=== PATIENT | female | born 1980 | race African-American/Black ===

== ENCOUNTER 2017-01-11 21:28 | Emergency (ER) | payer OTHER ==
[2017-01-11 21:36] VITALS: BP 142/92; PULSE 106; TEMP 98; BMI 34.7
--- NOTE | 2017-01-11 21:41 | PDOC ---
Rapid Medical Evaluation Chief Complaint: Injury Time Seen by Provider: 01/11/17 21:40 Medical Evaluation: Allergies Allergy/AdvReac Type Severity Reaction Status Date / Time No Known Allergies Allergy Verified 06/12/15 11:15 Vital Signs Temp Pulse Resp BP Pulse Ox 98 F 106 H 19 142/92 97 01/11/17 21:33 01/11/17 21:33 01/11/17 21:33 01/11/17 21:33 01/11/17 21:33 01/11/17 21:40 I have performed a brief in-person evaluation of this patient. The patient presents with a chief complaint of: rt shoulder pain, hx of dislocation Pertinent physical exam findings: no ac seperation, tenderness to ac joint I have ordered the following: rt shoulder xray The patient will proceed to the ED for further evaluation.
[2017-01-11] MEDS ORDERED: KETOROLAC TROMETHAMINE 60 MG/2 ML VIAL IM ONE (22:27)
[2017-01-11] MEDS ORDERED: KETOROLAC TROMETHAMINE 60 MG/2 ML VIAL ONE (22:30)
--- NOTE | 2017-01-11 22:38 | PDOC ---
History of Present Illness - General Chief Complaint: Injury Stated Complaint: SHOULDER INJURY Time Seen by Provider: 01/11/17 21:40 History Source: Patient Exam Limitations: No Limitations (pt with pain ) - History of Present Illness Initial Comments: 01/11/17 22:31 pt with pain to the right shoulder woke up yesterday with the pain. Pt did not take any pain meds . Pt has history of shoulder "popping out", but has never had to have it reduced in hospital setting. Pt denies direct trauma. Severity: mild Past History - Past Medical History Allergies/Adverse Reactions: Allergies Allergy/AdvReac Type Severity Reaction Status Date / Time No Known Allergies Allergy Verified 06/12/15 11:15 Home Medications: Ambulatory Orders Naproxen [Naprosyn -] 500 mg PO BID PRN #14 tablet 01/11/17 Oxycodone HCl/Acetaminophen [Percocet 5-325 mg Tablet] 1 tab PO Q6H PRN #8 tablet MDD 4 tabs 01/11/17 Anemia: No Asthma: No Cancer: No Cardiac Disorders: No CVA: No COPD: No CHF: No DVT: No Dementia: No Diabetes: No GI Disorders: No Disorders: No HTN: No Hypercholesterolemia: No Liver Disease: No Seizures: No Thyroid Disease: No - Suicide/Smoking/Psychosocial Hx Smoking Status: Yes Smoking History: Current every day smoker Have you smoked in the past 12 months: No Number of Cigarettes Smoked Daily: 3 If you are a former smoker, when did you quit?: 2014 Information on smoking cessation initiated: No Hx Alcohol Use: No Drug/Substance Use Hx: No Substance Use Type: None Hx Substance Use Treatment: No Review of Systems - Review of Systems Able to Perform ROS?: Yes Is the patient limited Icelandic proficient: No Constitutional: No: Symptoms Reported HEENTM: No: Symptoms Reported Respiratory: No: Symptoms reported Cardiac (ROS): No: Symptoms Reported ABD/GI: No: Symptoms Reported : No: Symptoms Reported Musculoskeletal: Yes: Symptoms Reported *Physical Exam - Vital Signs Last Vital Signs Temp Pulse Resp BP Pulse Ox 98 F 106 H 19 142/92 97 01/11/17 21:33 01/11/17 21:33 01/11/17 21:33 01/11/17 21:33 01/11/17 21:33 - Physical Exam General Appearance: Yes: Nourished, Appropriately Dressed HEENT: positive: EOMI, KELSEY Neck: positive: Supple. negative: Tender Respiratory/Chest: positive: Lungs Clear, Normal Breath Sounds Cardiovascular: positive: Regular Rhythm, Regular Rate Extremity: positive: Normal Capillary Refill, Normal Inspection, Tender ( anterior shoulder ), Other (decreased ROM due to pain ) Integumentary: positive: Normal Color, Dry, Warm Neurologic: positive: Fully Oriented, Alert, Normal Mood/Affect, Normal Response , Motor Strength 5/5 Medical Decision Making - Medical Decision Making 01/11/17 22:33 cc: right shoulder pain for 36hrs woke up yesterday with the pain pt denies numbness or tingling limited ROM due to pain xray done shows neg dislocation, mild AC seperation *DC/Admit/Observation/Transfer Diagnosis at time of Disposition: Shoulder separation Qualifiers: Encounter type: initial encounter Laterality: right Qualified Code(s): S43.004A - Unspecified dislocation of right shoulder joint, initial encounter - Discharge Dispostion Disposition: HOME Condition at time of disposition: Good - Prescriptions Prescriptions: Naproxen [Naprosyn -] 500 mg PO BID PRN #14 tablet PRN Reason: Pain Level 6-10 Oxycodone HCl/Acetaminophen [Percocet 5-325 mg Tablet] 1 tab PO Q6H PRN #8 tablet MDD 4 tabs PRN Reason: Severe Pain - Referrals Referrals: Tomi Wilson MD [Primary Care Provider] - Oneil Jack MD [Staff Physician] - - Patient Instructions Additional Instructions: follow with or THIS WEEK call them in the morning tell them you were in the ER apply ice every 2hrs for 20 minutes for the next day while awake take the pain meds as prescribed naprosyn for moderate pain percocet for severe pain use the sling at all times while awake remove to sleep and bathe - Post Discharge Activity
== END 2017-01-11 22:51 | disposition home or self-care (01) ==
LOC: JERFT 21:28 → JER 21:28 → JERFT 22:51
PROC: 3E0233Z Introduction of Anti-inflammatory into Muscle, Percutaneous Approach (ICD-10-PCS; principal; 2017-01-11)
DX: M24.411 Recurrent dislocation, right shoulder (principal)
CPT/HCPCS: 73030-TC-RT; 96372; 99281-25

== ENCOUNTER 2018-05-21 11:04 | Inpatient (IN) | payer SELFPAY ==
[2018-05-21] MEDS ORDERED: ASPIRIN 81 MG CHEWABLE TABLETS PO ONE (12:20)
--- NOTE | 2018-05-21 12:25 | PDOC ---
History of Present Illness - General History Source: Patient Exam Limitations: No Limitations <Peter Sharif - Last Filed: 05/21/18 14:08> - History of Present Illness Initial Comments: 05/21/18 12:33 The patient is a 38YOF with a PMH of a-fib, thyroid disorder, stroke, and smoking history presents to the ER for chest pain for the past 2 days. Patient states the chest pain is left sided, constant, and associated with left shoulder pain. She denies having any cardiac work up in the past. She does have positive cardiac family history. The patient denies shortness of breath, headache and dizziness. Denies fever, chills, nausea, vomit, diarrhea and constipation. Denies dysuria, frequency, urgency and hematuria. Allergies: NKA Past surgical history: None reported. Social history: Smoking history. No reported alcohol or drug use. PCP: Dr. Tomi Wilson <[employer] - Last Filed: 05/21/18 14:28> - General Chief Complaint: Chest Pain Stated Complaint: CHEST PAIN Time Seen by Provider: 05/21/18 11:56 Past History - Past Medical History Anemia: No Asthma: No Cancer: No Cardiac Disorders: Yes (a fib refuses medication) CVA: No COPD: No CHF: No DVT: No Dementia: No Diabetes: No GI Disorders: No Disorders: No HTN: No Hypercholesterolemia: No Liver Disease: No Seizures: Yes (refuses medication) Thyroid Disease: No - Suicide/Smoking/Psychosocial Hx Smoking Status: Yes Smoking History: Former smoker Have you smoked in the past 12 months: Yes Number of Cigarettes Smoked Daily: 2 If you are a former smoker, when did you quit?: 01/2018 Information on smoking cessation initiated: No Hx Alcohol Use: No Drug/Substance Use Hx: No Substance Use Type: None Hx Substance Use Treatment: No <Peter Sharif - Last Filed: 05/21/18 14:08> <[employer]chant - Last Filed: 05/21/18 14:28> - Past Medical History Allergies/Adverse Reactions: Allergies Allergy/AdvReac Type Severity Reaction Status Date / Time No Known Allergies Allergy Verified 05/21/18 11:09 Home Medications: Ambulatory Orders NK [No Known Home Medication] 05/21/18 Review of Systems - Review of Systems Able to Perform ROS?: Yes Comments:: 05/21/18 12:29 ADULT ROS GENERAL/CONSTITUTIONAL: No fever or chills. No weakness. HEAD, EYES, EARS, NOSE AND THROAT: No change in vision. No ear pain or discharge. No sore throat. CARDIOVASCULAR: No shortness of breath. (+) chest pain. RESPIRATORY: No cough, wheezing, or hemoptysis. GASTROINTESTINAL: No nausea, vomiting, diarrhea or constipation. GENITOURINARY: No dysuria, frequency, or change in urination. MUSCULOSKELETAL: No joint or muscle swelling or pain. No neck or back pain. (+) Left shoulder pain. SKIN: No rash NEUROLOGIC: No headache, vertigo, loss of consciousness, or change in strength/ sensation. ENDOCRINE: No increased thirst. No abnormal weight change. HEMATOLOGIC/LYMPHATIC: No anemia, easy bleeding, or history of blood clots. ALLERGIC/IMMUNOLOGIC: No hives or skin allergy. <[employer] - Last Filed: 05/21/18 14:28> *Physical Exam - Vital Signs Last Vital Signs Temp Pulse Resp BP Pulse Ox 97.8 F 116 H 20 169/90 99 05/21/18 11:06 05/21/18 11:06 05/21/18 11:06 05/21/18 11:06 05/21/18 11:06 <Peter Sharif - Last Filed: 05/21/18 14:08> - Vital Signs Last Vital Signs Temp Pulse Resp BP Pulse Ox 97.8 F 116 H 20 169/90 99 05/21/18 11:06 05/21/18 11:06 05/21/18 11:06 05/21/18 11:06 05/21/18 11:06 - Physical Exam Comments: 05/21/18 12:28 ADULT EXAM GENERAL: Awake, alert, and fully oriented, in no acute distress EYES: PERRLA, EOMI, sclera anicteric, conjunctiva clear ENT: Auricles normal inspection, hearing grossly normal, nares patent. NECK: Normal ROM, supple, no lymphadenopathy, JVD, or masses LUNGS: Breath sounds equal, clear to auscultation bilaterally. No wheezes, and no crackles HEART: Regular rate and rhythm, normal S1 and S2, no murmurs, rubs or gallops ABDOMEN: Soft, nontender. No guarding, no rebound. EXTREMITIES: Normal range of motion, no edema. No clubbing or cyanosis. No cords, erythema (+) Reproducible tenderness to palpation on left shoulder. NEUROLOGICAL: Cranial nerves II through XII grossly intact. Normal speech SKIN: Warm, Dry, normal turgor, no rashes or lesions noted. <[employer]chant - Last Filed: 05/21/18 14:28> Moderate Sedation - Procedure Monitoring Vital Signs: Procedure Monitoring Vital Signs Temperature 97.8 F 05/21/18 11:06 Pulse Rate 116 H 05/21/18 11:06 Respiratory Rate 20 05/21/18 11:06 Blood Pressure 169/90 05/21/18 11:06 O2 Sat by Pulse Oximetry (%) 99 05/21/18 11:06 <Peter Sharif - Last Filed: 05/21/18 14:08> - Procedure Monitoring Vital Signs: Procedure Monitoring Vital Signs Temperature 97.8 F 05/21/18 11:06 Pulse Rate 116 H 05/21/18 11:06 Respiratory Rate 20 05/21/18 11:06 Blood Pressure 169/90 05/21/18 11:06 O2 Sat by Pulse Oximetry (%) 99 05/21/18 11:06 <[employer]chant - Last Filed: 05/21/18 14:28> Heart Score/ECG Review #1 ECG reviewed & interpreted by me at: 11:00 05/21/18 12:26 atrial fibrillation 107, no std/herve, Q wave V3, QTC 467 msec <Peter Sharif - Last Filed: 05/21/18 14:08> ED Treatment Course - LABORATORY CBC & Chemistry Diagram: 05/21/18 12:50 05/21/18 12:50 <Peter Sharif - Last Filed: 05/21/18 14:08> - LABORATORY CBC & Chemistry Diagram: 05/21/18 12:50 05/21/18 12:50 <[employer] - Last Filed: 05/21/18 14:28> Medical Decision Making - Medical Decision Making 05/21/18 12:21 A portion of this note was documented by scribe services under my direction. I have reviewed the details of the note, within reason, and agree with the documentation with the following case summary and management plan written by me. Patient treated in the ED. Nursing notes are reviewed and incorporated into the medical decision-making. Vital signs reviewed. Peripheral IV access obtained by the nurse, laboratory studies are drawn and sent, reviewed and interpreted by myself. Vital Signs Temp Pulse Resp BP Pulse Ox 97.8 F 116 H 20 169/90 99 05/21/18 11:06 05/21/18 11:06 05/21/18 11:06 05/21/18 11:06 05/21/18 11:06 38-year-old female patient with past medical history of atrial fibrillation, thyroid disorder, stroke, smoking history presents with left upper chest pain for 2 days. Patient is noticed constant left upper shoulder pain with question shortness of breath. Unclear if exertional. No nausea, vomiting, diaphoresis. Patient reports that the symptoms are reproducible with palpation. Does not think that she lifted anything heavy. Does have a strong family history where her twin sister had from myocardial infarction. Never had a prior cardiac workup. Patient reports that she was hesitant to follow-up with her doctor or go to [facility] because her [id number] had recently and the patient is hesitant about taking her medications. Patient is aware of the atrial for ablation history but does not take any medications. Though the patient's chest pain history of physical is atypical, the patient has significant history. The patient's symptoms may have potentially been the cause of atrial fibrillation and rapid ventricular response. However, acute coronary syndrome should be considered. Patient will need to be considered for anticoagulations particularly with history of stroke. Ultimately, the patient should be admitted to the hospital for further cardiac evaluation. We'll give aspirin and admit. CHADS2-VASC: 3 05/21/18 14:12 CBC, BMP 05/21/18 12:50 05/21/18 12:50 CMP Sodium 141 mmol/L (136-145) 05/21/18 12:50 Potassium 3.8 mmol/L (3.5-5.1) 05/21/18 12:50 Chloride 111 mmol/L (98-107) H 05/21/18 12:50 Carbon Dioxide 26 mmol/L (21-32) 05/21/18 12:50 Anion Gap 4 MMOL/L (8-16) L 05/21/18 12:50 BUN 14 mg/dL (7-18) 05/21/18 12:50 Creatinine 0.4 mg/dL (0.55-1.3) L 05/21/18 12:50 Creat Clearance w eGFR 176.78 (>60) 05/21/18 12:50 Random Glucose 94 mg/dL (74-106) 05/21/18 12:50 Calcium 8.3 mg/dL (8.5-10.1) L 05/21/18 12:50 Magnesium 1.6 mg/dL (1.8-2.4) L 05/21/18 12:50 Total Bilirubin 0.3 mg/dL (0.2-1) 05/21/18 12:50 AST 24 U/L (15-37) 05/21/18 12:50 ALT 35 U/L (13-61) 05/21/18 12:50 Alkaline Phosphatase 192 U/L (45-117) H 05/21/18 12:50 Creatine Kinase 52 U/L (26-192) 05/21/18 12:50 Troponin I < 0.02 ng/ml (0.00-0.05) 05/21/18 12:50 Total Protein 7.4 g/dl (6.4-8.2) 05/21/18 12:50 Albumin 3.0 g/dl (3.4-5.0) L 05/21/18 12:50 TSH 0.01 uIU/ml (0.358-3.74) L 05/21/18 12:50 Free T4 2.79 ng/dl (0.76-1.46) H 05/21/18 12:50 Pt noted to be hyperthyroid but negative troponin. Hyperthyroid likely worsening afib. Case discussed with Dr. Hernandez (covering for Franescone), agrees with starting NOAC. Will initiate eliquis. Case discussed with Dr. Samaniego who accepts patient to telemetry admission. Requests Dr. Jaramillo for endocrinology. <Peter Sharif - Last Filed: 05/21/18 14:08> - Medical Decision Making 05/21/18 14:27 Case d/w Dr. Jaramillo, wholesale account executive. <[employer] Merchant - Last Filed: 05/21/18 14:28> *DC/Admit/Observation/Transfer - Discharge Dispostion Decision to Admit order: Yes <Peter Sharif - Last Filed: 05/21/18 14:08> - Attestations Scribe Attestion: 05/21/18 12:29 Documentation prepared by [employer], acting as medical insurance coding specialist for Peter Sharif MD. <[employer]chant - Last Filed: 05/21/18 14:28> Diagnosis at time of Disposition: Hyperthyroidism Chest pain Qualifiers: Chest pain type: unspecified Qualified Code(s): R07.9 - Chest pain, unspecified Atrial fibrillation Qualifiers: Atrial fibrillation type: unspecified Qualified Code(s): I48.91 - Unspecified atrial fibrillation - Discharge Dispostion Condition at time of disposition: Stable
[2018-05-21] MEDS ORDERED: ASPIRIN 81 MG CHEWABLE TABLETS ONE (12:52)
[2018-05-21 13:05] LABS: BASO % 0.4 % (0-2.0); EOS % 1.4 % (0-4.5); HEMATOCRIT 35.1 % (32.4-45.2); HEMOGLOBIN 11.8 GM/dL (10.7-15.3); LYMPH % 20.9 % (8-40); MCH 24.8 pg (25.7-33.7); MCHC 33.5 g/dl (32.0-36.0); MEAN CELL VOLUME 74.2 fl (80-96); MEAN PLT VOLUME 8.4 fl (7.5-11.1); MONO % 9.8 % (3.8-10.2); NEUT % 67.5 % (42.8-82.8); PLATELET COUNT 197 K/MM3 (134-434); RBC 4.74 M/mm3 (3.60-5.2); RDW 14.6 % (11.6-15.6)
[2018-05-21 13:18] LABS: INR 1.17 (0.83-1.09); PROTHROMBIN TIME (PATIENT) 13.8 SEC (9.7-13.0)
[2018-05-21 13:21] LABS: ACTIVATED PTT 43.8 SECONDS (25.2-36.5)
[2018-05-21 13:39] LABS: ALK PHOS 192 U/L (45-117); ANION GAP 4 MMOL/L (8-16); BILIRUBIN,TOTAL 0.3 mg/dL (0.2-1); BLOOD UREA NITROGEN 14 mg/dL (7-18); CALCIUM 8.3 mg/dL (8.5-10.1); CHLORIDE 111 mmol/L (98-107); CO2 26 mmol/L (21-32); CREATININE 0.4 mg/dL (0.55-1.3); GLUCOSE,RANDOM 94 mg/dL (74-106); MAGNESIUM 1.6 mg/dL (1.8-2.4); POTASSIUM 3.8 mmol/L (3.5-5.1); SGOT/AST 24 U/L (15-37); SGPT/ALT 35 U/L (13-61); SODIUM 141 mmol/L (136-145); TOT PROT 7.4 g/dl (6.4-8.2)
--- NOTE | 2018-05-21 17:29 | CONSULT ---
Consult Consult Specialty:: ENDOCRINOLOGY Referred by:: DR.ELIZABETH SANCHEZ Reason for Consultation:: HYPERTHYROIDISM - History of Present Illness Chief Complaint: PALPITATION AND WEIGHT LOSS History of Present Illness: 38-year-old female patient with past medical history of abnormal thyroid function,atrial fibrillation, stroke, smoking history presents with left upper chest pain for 2 days. Patient has lost 50lbs,over past 7 months,feeling restless,anxious,heat intolerant,sweats,palpitations.she denies fever,chills, cough nausea or vomiting - History Source History Provided By: Patient - Past Medical History ...LMP: 05/18/15 Endocrine: Yes: Other (thyroid disease and goiter (pt refuses meds and treatment )) - Alcohol/Substance Use Hx Alcohol Use: No - Smoking History Smoking history: Former smoker Have you smoked in the past 12 months: Yes Aproximately how many cigarettes per day: 2 If you are a former smoker, when did you quit?: 01/2018 Home Medications - Allergies Allergies/Adverse Reactions: Allergies Allergy/AdvReac Type Severity Reaction Status Date / Time No Known Allergies Allergy Verified 05/21/18 11:09 - Home Medications Home Medications: Ambulatory Orders NK [No Known Home Medication] 05/21/18 Family Disease History - Family Disease History Family Disease History: Heart Disease: Sister (twin sister had ?Graves disease, of heart attack age 29), Other: Sister Review of Systems - Review of Systems Constitutional: reports: Unintentional Wgt. Loss Eyes: reports: No Symptoms HENT: reports: No Symptoms Cardiovascular: reports: Palpitations Respiratory: reports: Exercise Intolerance Gastrointestinal: reports: Bloating Genitourinary: reports: No Symptoms Breasts: reports: No Symptoms Reported Musculoskeletal: reports: Muscle Weakness Neurological: reports: Tremors Endocrine: reports: Unexplained Weight Loss Physical Exam Vital Signs: Vital Signs Temperature 97.8 F 05/21/18 11:06 Pulse Rate 116 H 05/21/18 11:06 Respiratory Rate 20 05/21/18 11:06 Blood Pressure 169/90 05/21/18 11:06 O2 Sat by Pulse Oximetry (%) 99 05/21/18 11:06 Constitutional: Yes: Calm Eyes: Yes: EOM Intact HENT: Yes: Normocephalic Neck: Yes: Trachea Midline, Thyromegaly Cardiovascular: Yes: Tachycardia Respiratory: Yes: CTA Bilaterally Gastrointestinal: Yes: Normal Bowel Sounds ...Rectal Exam: Yes: Deferred Renal/: Yes: WNL Musculoskeletal: Yes: WNL Extremities: Yes: WNL Neurological: Yes: Alert, Oriented, Tremors Labs: CBC, BMP 05/21/18 12:50 05/21/18 12:50 Problem List - Problems (1) Atrial fibrillation Code(s): I48.91 - UNSPECIFIED ATRIAL FIBRILLATION Qualifiers: Atrial fibrillation type: unspecified Qualified Code(s): I48.91 - Unspecified atrial fibrillation (2) Hyperthyroidism Code(s): E05.90 - THYROTOXICOSIS, UNSP WITHOUT THYROTOXIC CRISIS OR STORM (3) Goiter diffuse Code(s): E04.9 - NONTOXIC GOITER, UNSPECIFIED (4) Left anterior shoulder pain Code(s): M25.512 - PAIN IN LEFT SHOULDER (5) Nausea & vomiting Code(s): R11.2 - NAUSEA WITH VOMITING, UNSPECIFIED Assessment/Plan Current Active Problems Atrial fibrillation (Acute) Chest pain (Acute) Hyperthyroidism (Acute) Abnormal Lab Results 05/21/18 05/21/18 05/21/18 12:50 12:50 12:50 MCV 74.2 L MCH 24.8 L D PT with INR 13.80 H INR 1.17 H PTT (Actin FS) 43.8 H Chloride 111 H Anion Gap 4 L Creatinine 0.4 L Calcium 8.3 L Magnesium 1.6 L Alkaline Phosphatase 192 H Albumin 3.0 L TSH 0.01 L Free T4 2.79 H Laboratory Results - last 24 hr 05/21/18 05/21/18 05/21/18 12:50 12:50 12:50 WBC 8.0 RBC 4.74 Hgb 11.8 Hct 35.1 MCV 74.2 L MCH 24.8 L D MCHC 33.5 RDW 14.6 Plt Count 197 MPV 8.4 Absolute Neuts (auto) 5.4 Neutrophils % 67.5 Lymphocytes % 20.9 D Monocytes % 9.8 Eosinophils % 1.4 D Basophils % 0.4 Nucleated RBC % 0 PT with INR 13.80 H INR 1.17 H PTT (Actin FS) 43.8 H Sodium 141 Potassium 3.8 Chloride 111 H Carbon Dioxide 26 Anion Gap 4 L BUN 14 Creatinine 0.4 L Creat Clearance w eGFR 176.78 Random Glucose 94 Calcium 8.3 L Magnesium 1.6 L Total Bilirubin 0.3 AST 24 ALT 35 Alkaline Phosphatase 192 H Creatine Kinase 52 Troponin I < 0.02 Total Protein 7.4 Albumin 3.0 L TSH 0.01 L Free T4 2.79 H Urine HCG, Qual 05/21/18 14:20 WBC RBC Hgb Hct MCV MCH MCHC RDW Plt Count MPV Absolute Neuts (auto) Neutrophils % Lymphocytes % Monocytes % Eosinophils % Basophils % Nucleated RBC % PT with INR INR PTT (Actin FS) Sodium Potassium Chloride Carbon Dioxide Anion Gap BUN Creatinine Creat Clearance w eGFR Random Glucose Calcium Magnesium Total Bilirubin AST ALT Alkaline Phosphatase Creatine Kinase Troponin I Total Protein Albumin TSH Free T4 Urine HCG, Qual Negative plan: methimazole 10mg tid beta ven[place] per cardiology will need i124 thyroid scan as outpatient
[2018-05-21] MEDS ORDERED: APIXABAN 5 MG TABLET PO ONE (22:23)
[2018-05-21] MEDS: APIXABAN 5 MG TABLET PO SCH (22:32)
--- NOTE | 2018-05-21 23:46 | EKG ---
Test Reason : Blood Pressure : / mmHG Vent. Rate : 107 BPM Atrial Rate : 101 BPM P-R Int : 000 ms QRS Dur : 088 ms QT Int : 350 ms P-R-T Axes : 000 058 048 degrees QTc Int : 467 ms ATRIAL FIBRILLATION WITH RAPID VENTRICULAR RESPONSE CANNOT RULE OUT ANTERIOR INFARCT , AGE UNDETERMINED ABNORMAL ECG NO PREVIOUS ECGS AVAILABLE Confirmed by ANDRA CALLES MD ([id number]) on 05/21/2018 11:46:17 PM Referred By: Confirmed By:ANDRA CALLES MD
--- NOTE | 2018-05-22 05:27 | CON.CARD ---
Consult Consult Specialty:: cardiology Reason for Consultation:: chest pain; AF - History of Present Illness History of Present Illness: The patient is a 38 yr old black woman with a PMH of a-fib, thyroid disorder, s/ p CVA, obesity, sedentary lifestyle, noncompliance to medications (stopped all of them months ago), and smoking history presents to the ER for chest pain for the past 2 days. Patient states the chest pain is left sided, constant, and associated with left shoulder pain. She denies having any cardiac work up in the past. She does have positive cardiac family history. The patient denies shortness of breath, headache and dizziness. Denies fever, chills, nausea, vomit, diarrhea and constipation. Denies dysuria, frequency, urgency and hematuria. Allergies: NKA Past surgical history: None reported. Social history: Smoking history. No reported alcohol or drug use. PCP: Dr. Tomi Wilson - History Source History Provided By: Patient, Family Member (sister), Medical Record Limitations to Obtaining History: Poor Historian - Past Medical History Cardio/Vascular: Yes: HTN ...LMP: 05/18/15 Endocrine: Yes: Other (thyroid disease and goiter (pt refuses meds and treatment )) - Alcohol/Substance Use Hx Alcohol Use: No - Smoking History Smoking history: Former smoker Have you smoked in the past 12 months: Yes Aproximately how many cigarettes per day: 2 If you are a former smoker, when did you quit?: 01/2018 Home Medications - Allergies Allergies/Adverse Reactions: Allergies Allergy/AdvReac Type Severity Reaction Status Date / Time No Known Allergies Allergy Verified 05/21/18 11:09 - Home Medications Home Medications: Ambulatory Orders NK [No Known Home Medication] 05/21/18 Family Disease History - Family Disease History Family Disease History: Heart Disease: Sister (twin sister had ?Graves disease, of heart attack age 29), Other: Sister Review of Systems - Review of Systems Constitutional: reports: No Symptoms Eyes: reports: No Symptoms HENT: reports: No Symptoms Neck: reports: No Symptoms Cardiovascular: reports: Chest Pain Respiratory: reports: No Symptoms Gastrointestinal: reports: No Symptoms Genitourinary: reports: No Symptoms Breasts: reports: No Symptoms Reported Musculoskeletal: reports: No Symptoms Integumentary: reports: No Symptoms Neurological: reports: No Symptoms Endocrine: reports: No Symptoms Hematology/Lymphatic: reports: No Symptoms Psychiatric: reports: No Symptoms - Risk Factors Known Risk Factors: Yes: Age, Family History, Hypertension, Physical Inactivity , Prior MO /Emb Stroke, Race, Other (AF) Vital Signs: Vital Signs Temperature 97.8 F 05/21/18 11:06 Pulse Rate 92 H 05/21/18 23:15 Respiratory Rate 17 05/21/18 23:15 Blood Pressure 150/87 05/21/18 23:15 O2 Sat by Pulse Oximetry (%) 98 05/21/18 23:15 Constitutional: Yes: Well Nourished, No Distress Eyes: Yes: WNL HENT: Yes: WNL Neck: Yes: WNL Respiratory: Yes: WNL Gastrointestinal: Yes: WNL Renal/: No: Anuria Cardiovascular: Yes: Pulse Irregular JVD: No Carotid Bruit: No PMI: Non-Displaced Heart Sounds: Yes: S1 (varies in intensity), S2 Murmur: Yes: Systolic Murmur, Grade 1 Musculoskeletal: Yes: WNL Extremities: Yes: WNL Edema: No Peripheral Pulses WNL: Yes Integumentary: Yes: WNL Neurological: Yes: WNL ...Motor Strength: WNL Psychiatric: Yes: WNL - Other Data Labs, Other Data: CBC, BMP 05/21/18 12:50 05/21/18 12:50 INR, PTT INR 1.17 (0.83-1.09) H 05/21/18 12:50 Troponin, BNP 05/21/18 05/22/18 12:50 02:42 Troponin I < 0.02 < 0.02 Troponin, BNP 05/21/18 05/22/18 12:50 02:42 Troponin I < 0.02 < 0.02 Abnormal Lab Results 05/21/18 05/21/18 05/21/18 12:50 12:50 12:50 MCV 74.2 L MCH 24.8 L D PT with INR 13.80 H INR 1.17 H PTT (Actin FS) 43.8 H Chloride 111 H Anion Gap 4 L Creatinine 0.4 L Calcium 8.3 L Magnesium 1.6 L Alkaline Phosphatase 192 H Albumin 3.0 L TSH 0.01 L Free T4 2.79 H Echo: Pending Imaging - Results Chest X-ray: Image Reviewed (large heart; degenerative changes) EKG: Image Reviewed (AF WITH RVR) Problem List - Problems (1) Atrial fibrillation with rapid ventricular response Assessment/Plan: placed on apixaban for anticoagulation. Beta venice or Ca2 blkr (nondyhydropridine) for HR control; f/u LVEF for help in decision. Code(s): I48.91 - UNSPECIFIED ATRIAL FIBRILLATION (2) HTN (hypertension) Assessment/Plan: f/u BP srrially. Code(s): I10 - ESSENTIAL (PRIMARY) HYPERTENSION (3) Obesity Code(s): E66.9 - OBESITY, UNSPECIFIED (4) Sedentary lifestyle Code(s): Z91.89 - OTH PERSONAL RISK FACTORS, NOT ELSEWHERE CLASSIFIED (5) Atrial fibrillation Assessment/Plan: Pt has been diagnosed with AF in the past. She has hx ov CVA. Noncompliant to all medications for months. Plan: Start anticoagulation. ECHO for LVEF, wall thickness and motion, chamber sizes, valve status. AV conduction venice for HR control (beta venice, particulalry if reduced LVEF ). F/u treatment for hyperthyroidism; the latter may be contributing to AF with RVR. Code(s): I48.91 - UNSPECIFIED ATRIAL FIBRILLATION Qualifiers: Atrial fibrillation type: unspecified Qualified Code(s): I48.91 - Unspecified atrial fibrillation (6) Chest pain Assessment/Plan: TNI < 0.02; f/u serially. EKG: AF with RVR; f/u serially. Telemetry. ECHO for LVEF, regional wall motion and thickness; valve status, chamber sizes. Coronary artery evaluation (stress test) when stable. Code(s): R07.9 - CHEST PAIN, UNSPECIFIED Qualifiers: Chest pain type: unspecified Qualified Code(s): R07.9 - Chest pain, unspecified (7) Hyperthyroidism Assessment/Plan: TSH 0.01; elevated free T4;f/u free T3. F/u with database administrator. Code(s): E05.90 - THYROTOXICOSIS, UNSP WITHOUT THYROTOXIC CRISIS OR STORM (8) Noncompliance with medications Code(s): Z91.14 - PATIENT'S OTHER NONCOMPLIANCE WITH MEDICATION REGIMEN (9) Hypomagnesemia Assessment/Plan: replete Mg2+, and keep 2.0-2.4. F/u K (3.8) and PO4 Code(s): E83.42 - HYPOMAGNESEMIA
[2018-05-22 06:52] LABS: BASO % 0.2 % (0-2.0); HEMATOCRIT 33.5 % (32.4-45.2); HEMOGLOBIN 11.4 GM/dL (10.7-15.3); LYMPH % 28.5 % (8-40); MCH 25.4 pg (25.7-33.7); MCHC 34.1 g/dl (32.0-36.0); MEAN CELL VOLUME 74.4 fl (80-96); MEAN PLT VOLUME 8.9 fl (7.5-11.1); NEUT % 58.3 % (42.8-82.8); PLATELET COUNT 180 K/MM3 (134-434); RBC 4.51 M/mm3 (3.60-5.2); RDW 14.1 % (11.6-15.6); WHITE BLOOD COUNT 7.1 K/mm3 (4.0-10.0)
[2018-05-22 07:13] LABS: ALK PHOS 186 U/L (45-117); ANION GAP 7 MMOL/L (8-16); BILIRUBIN,TOTAL 0.3 mg/dL (0.2-1); BLOOD UREA NITROGEN 13 mg/dL (7-18); CALCIUM 8.2 mg/dL (8.5-10.1); CHLORIDE 112 mmol/L (98-107); CO2 23 mmol/L (21-32); CREATININE 0.3 mg/dL (0.55-1.3); GLUCOSE,RANDOM 87 mg/dL (74-106); POTASSIUM 3.8 mmol/L (3.5-5.1); SGOT/AST 25 U/L (15-37); SGPT/ALT 33 U/L (13-61); SODIUM 142 mmol/L (136-145); TOT PROT 7.1 g/dl (6.4-8.2)
[2018-05-22] MEDS: APIXABAN 5 MG TABLET PO SCH ×2 (10:26→22:10)
--- NOTE | 2018-05-22 11:17 | ECHO ---
Name: LISA MCKEON Exam:Adult Echocardiogram Study Date: 05/22/2018 07:56 AM Age: 38 yrs Reason For Study: Chest pain Height: 63 in Weight: 205 lb BSA: 2.0 m2 MMode/2D Measurements & Calculations IVSd: 0.96 cm Ao root diam: 2.2 cm LVIDd: 5.5 cm LA dimension: 5.2 cm LVIDs: 3.9 cm LVPWd: 0.69 cm EDV(Teich): 146.9 ml MV Diam: 2.7 cm ESV(Teich): 67.5 ml LVOT diam: 2.0 cm LAV (MOD-bp): 97.0 ml RVOT diam: 2.1 cm Doppler Measurements & Calculations MV E max rafiq: 131.6 cm/sec MV area (1 diam): 5.7 cm2 MV Flow area(1diam): 5.7 cm2 Ao V2 max: 194.1 cm/sec AI max rafiq: 393.1 cm/sec Ao max P.1 mmHg AI max P.8 mmHg Ao V2 mean: 136.6 cm/sec AI dec slope: 171.3 cm/sec2 Ao mean P.6 mmHg Ao V2 VTI: 35.6 cm ELKIN(I,D): 1.8 cm2 AI P1/2t: 672.0 msec ELKIN(V,D): 1.8 cm2 LV V1 max P.2 mmHg MR max rafiq: 556.0 cm/sec LV V1 mean P.4 mmHg MR max P.0 mmHg LV V1 max: 113.5 cm/sec LV V1 mean: 86.8 cm/sec LV V1 VTI: 21.1 cm SV(LVOT): 64.5 ml TR max rafiq: 292.6 cm/sec TR max P.2 mmHg PI end-d rafiq: 120.7 cm/sec Med Peak E' Rafiq: 9.9 cm/sec Med E/e': 13.3 Lat Peak E' Rafiq: 17.8 cm/sec Lat E/e': 7.4 SV(RVOT): 53.1 ml Procedure A complete two-dimensional transthoracic echocardiogram was performed (2D, M-mode, Doppler and color flow Doppler). Left Ventricle The left ventricle is normal in size. Left ventricular systolic function is normal. Ejection Fraction = 55- 60%. No regional wall motion abnormalities noted. Right Ventricle The right ventricle is normal size. The right ventricular systolic function is normal. RV systolic TD I is 18 cm/s. Atria The left atrium is severely dilated. LA volume index is 50 ml/m2. Right atrial size is normal. Mitral Valve There is mild mitral annular calcification. There is moderate mitral regurgitation. Tricuspid Valve The tricuspid valve is normal in structure and function. There is mild to moderate tricuspid regurgit ation. Pulmonary artery systolic pressure is at least 50 mmHg assuming RA pressure of 15 mmHg (dilated IVC a nd <50% collapse). Aortic Valve There is mild aortic sclerosis.;. No aortic regurgitation is present. Pulmonic Valve The pulmonic valve is not well visualized. Mild pulmonic valvular regurgitation. Great Vessels The aortic root is normal size. Pericardium/Pleura There is no pericardial effusion. Interpretation Summary The left ventricle is normal in size. Left ventricular systolic function is normal. No regional wall motion abnormalities noted. Ejection Fraction = 55-60%. The right ventricular systolic function is normal. The left atrium is severely dilated. Right atrial size is normal. There is mild mitral annular calcification. There is moderate mitral regurgitation. There is mild to moderate tricuspid regurgitation. Pulmonary artery systolic pressure is at least 50 mmHg assuming RA pressure of 15 mmHg (dilated IVC a nd <50% collapse) There is mild aortic sclerosis.; Mild pulmonic valvular regurgitation. There is no pericardial effusion. Previous study is not available for comparison Lam Sharma MD 05/22/2018 11:17 AM
--- NOTE | 2018-05-22 12:27 | PN ---
Progress Note, Physician - Current Medication List Current Medications: Active Medications Apixaban (Eliquis -) 5 mg PO BID [facility] Last Admin: 05/22/18 10:26 Dose: 5 mg - Objective Vital Signs: Vital Signs Temperature 97.5 F L 05/22/18 10:00 Pulse Rate 91 H 05/22/18 10:00 Respiratory Rate 20 05/22/18 10:00 Blood Pressure 140/71 05/22/18 10:00 O2 Sat by Pulse Oximetry (%) 100 05/22/18 10:00 Labs: CBC, BMP 05/22/18 06:10 05/22/18 06:10 INR, PTT INR 1.17 (0.83-1.09) H 05/21/18 12:50
--- NOTE | 2018-05-22 12:49 | PN ---
Progress Note, Physician Chief Complaint: chest pain History of Present Illness: The patient is a 38 yr old black woman with a PMH of a-fib, thyroid disorder, s/ p CVA, obesity, sedentary lifestyle, noncompliance to medications (stopped all of them months ago), and smoking history presents to the ER for chest pain for the past 2 days. Patient states the chest pain is left sided, constant, and associated with left shoulder pain. She denies having any cardiac work up in the past. She does have positive cardiac family history. The patient denies shortness of breath, headache and dizziness. Denies fever, chills, nausea, vomit, diarrhea and constipation. Denies dysuria, frequency, urgency and hematuria. Allergies: NKA Past surgical history: None reported. Social history: Smoking history. No reported alcohol or drug use. PCP: Dr. Tomi Wilson - Current Medication List Current Medications: Active Medications Apixaban (Eliquis -) 5 mg PO BID [facility] Last Admin: 05/22/18 10:26 Dose: 5 mg - Objective Vital Signs: Vital Signs Temperature 97.5 F L 05/22/18 10:00 Pulse Rate 91 H 05/22/18 10:00 Respiratory Rate 20 05/22/18 10:00 Blood Pressure 140/71 05/22/18 10:00 O2 Sat by Pulse Oximetry (%) 100 05/22/18 10:00 Eyes: Yes: WNL, Conjunctiva Clear, EOM Intact HENT: Yes: WNL, Atraumatic, Normocephalic Neck: Yes: WNL, Supple, Trachea Midline Cardiovascular: Yes: WNL, Regular Rate and Rhythm Respiratory: Yes: WNL, Regular, CTA Bilaterally Gastrointestinal: Yes: WNL, Normal Bowel Sounds Genitourinary: Yes: WNL Musculoskeletal: Yes: WNL Extremities: Yes: WNL Edema: No Integumentary: Yes: WNL Neurological: Yes: WNL, Alert, Oriented ...Motor Strength: WNL Psychiatric: Yes: WNL Labs: CBC, BMP 05/22/18 06:10 05/22/18 06:10 INR, PTT INR 1.17 (0.83-1.09) H 05/21/18 12:50 Assessment/Plan - Problems (1) Atrial fibrillation with rapid ventricular response Assessment/Plan: placed on apixaban for anticoagulation. Beta venice or Ca2 blkr (nondyhydropridine) for HR control; f/u LVEF for help in decision. Code(s): I48.91 - UNSPECIFIED ATRIAL FIBRILLATION (2) HTN (hypertension) Assessment/Plan: f/u BP srrially. Code(s): I10 - ESSENTIAL (PRIMARY) HYPERTENSION (3) Obesity Code(s): E66.9 - OBESITY, UNSPECIFIED (4) Sedentary lifestyle Code(s): Z91.89 - OTH PERSONAL RISK FACTORS, NOT ELSEWHERE CLASSIFIED (5) Atrial fibrillation Assessment/Plan: Pt has been diagnosed with AF in the past. She has hx ov CVA. Noncompliant to all medications for months. Plan: Start anticoagulation. ECHO for LVEF, wall thickness and motion, chamber sizes, valve status. AV conduction venice for HR control (beta venice, particulalry if reduced LVEF ). F/u treatment for hyperthyroidism; the latter may be contributing to AF with RVR. MIBI ST in am Code(s): I48.91 - UNSPECIFIED ATRIAL FIBRILLATION Qualifiers: Atrial fibrillation type: unspecified Qualified Code(s): I48.91 - Unspecified atrial fibrillation (6) Chest pain Assessment/Plan: TNI < 0.02; f/u serially. EKG: AF with RVR; f/u serially. Telemetry. ECHO for LVEF, regional wall motion and thickness; valve status, chamber sizes. Coronary artery evaluation (stress test) when stable. Code(s): R07.9 - CHEST PAIN, UNSPECIFIED Qualifiers: Chest pain type: unspecified Qualified Code(s): R07.9 - Chest pain, unspecified (7) Hyperthyroidism Assessment/Plan: TSH 0.01; elevated free T4;f/u free T3. F/u with flight/transport nurse. Code(s): E05.90 - THYROTOXICOSIS, UNSP WITHOUT THYROTOXIC CRISIS OR STORM (8) Noncompliance with medications Code(s): Z91.14 - PATIENT'S OTHER NONCOMPLIANCE WITH MEDICATION REGIMEN (9) Hypomagnesemia Assessment/Plan: replete Mg2+, and keep 2.0-2.4. F/u K (3.8) and PO4 Code(s): E83.42 - HYPOMAGNESEMIA Coverage dr. Gomez
[2018-05-22] MEDS: METHIMAZOLE 10 MG TABLET (FP) PO SCH ×2 (17:47→22:10)
[2018-05-22] MEDS: metoPROLOL SUCCINATE 25 MG TAB.SR.24H (FP) PO SCH (17:51)
[2018-05-22] MEDS ORDERED: APIXABAN 5 MG TABLET PO ONE (22:09)
[2018-05-22] MEDS ORDERED: diphenhydrAMINE HCL 25 MG CAPSULE (FP) PO ONE ×2 (22:24→23:01)
--- NOTE | 2018-05-23 01:28 | HP ---
Admitting History and Physical - Past Medical History Cardiovascular: Yes: HTN ...LMP: 05/18/15 Endocrine: Yes: Other (thyroid disease and goiter (pt refuses meds and treatment )) - Smoking History Smoking history: Former smoker Have you smoked in the past 12 months: Yes Aproximately how many cigarettes per day: 2 If you are a former smoker, when did you quit?: 01/2018 - Alcohol/Substance Use Hx Alcohol Use: No Home Medications - Allergies Allergies/Adverse Reactions: Allergies Allergy/AdvReac Type Severity Reaction Status Date / Time No Known Allergies Allergy Verified 05/21/18 11:09 - Home Medications Home Medications: Ambulatory Orders Apixaban [Eliquis -] 5 mg PO BID #60 tablet 05/24/18 Methimazole [Tapazole -] 10 mg PO TID #90 tablet 05/24/18 Metoprolol Succinate [Toprol XL -] 25 mg PO BID #60 tab.sr.24h 05/24/18 Family Disease History - Family Disease History Family Disease History: Heart Disease: Sister (twin sister had ?Graves disease, of heart attack age 29), Other: Sister Physical Examination Vital Signs: Vital Signs Temperature 98.3 F 05/22/18 20:20 Pulse Rate 93 H 05/22/18 20:20 Respiratory Rate 16 05/22/18 20:20 Blood Pressure 142/83 05/22/18 20:20 O2 Sat by Pulse Oximetry (%) 99 05/22/18 20:20 Labs: CBC, BMP 05/22/18 06:10 05/22/18 06:10 Problem List - Problems (1) Atrial fibrillation Code(s): I48.91 - UNSPECIFIED ATRIAL FIBRILLATION Qualifiers: Atrial fibrillation type: unspecified Qualified Code(s): I48.91 - Unspecified atrial fibrillation (2) Chest pain Code(s): R07.9 - CHEST PAIN, UNSPECIFIED Qualifiers: Chest pain type: unspecified Qualified Code(s): R07.9 - Chest pain, unspecified (3) HTN (hypertension) Code(s): I10 - ESSENTIAL (PRIMARY) HYPERTENSION (4) Hyperthyroidism Code(s): E05.90 - THYROTOXICOSIS, UNSP WITHOUT THYROTOXIC CRISIS OR STORM
[2018-05-23] MEDS: METHIMAZOLE 10 MG TABLET (FP) PO SCH ×3 (06:50→21:13)
--- NOTE | 2018-05-23 08:44 | PN ---
Progress Note, Physician Chief Complaint: Seen and examine in Cardiology prior to stress test Denies any further CP or SOB. Currently in NSR History of Present Illness: Endocrine input noted - Current Medication List Current Medications: Active Medications Apixaban (Eliquis -) 5 mg PO BID [facility] Last Admin: 05/22/18 22:10 Dose: 5 mg Methimazole (Tapazole -) 10 mg PO TID [facility] Last Admin: 05/23/18 06:50 Dose: 10 mg Metoprolol Succinate (Toprol Xl -) 25 mg PO DAILY [facility] Last Admin: 05/22/18 17:51 Dose: 25 mg - Objective Vital Signs: Vital Signs Temperature 98.4 F 05/23/18 08:26 Pulse Rate 86 05/23/18 08:26 Respiratory Rate 20 05/23/18 08:26 Blood Pressure 125/73 05/23/18 08:26 O2 Sat by Pulse Oximetry (%) 99 05/23/18 08:28 Constitutional: Yes: Calm Eyes: Yes: Conjunctiva Clear Cardiovascular: Yes: Pulse Irregular Respiratory: Yes: CTA Bilaterally, Other (no rales or wheezing) Gastrointestinal: Yes: Soft Edema: No Neurological: Yes: Alert, Oriented ...Motor Strength: WNL Labs: CBC, BMP 05/22/18 06:10 05/22/18 06:10 INR, PTT INR 1.17 (0.83-1.09) H 05/21/18 12:50 Laboratory Tests 05/21/18 05/22/18 05/22/18 12:50 02:42 06:10 WBC 7.1 Hgb 11.4 Plt Count 180 Troponin I < 0.02 < 0.02 TSH 0.01 L Free T4 2.79 H - ....Imaging EKG: Image Reviewed Problem List - Problems (1) Pulmonary hypertension Code(s): I27.20 - PULMONARY HYPERTENSION, UNSPECIFIED (2) Atrial fibrillation Code(s): I48.91 - UNSPECIFIED ATRIAL FIBRILLATION Qualifiers: Atrial fibrillation type: unspecified Qualified Code(s): I48.91 - Unspecified atrial fibrillation (3) Chest pain Code(s): R07.9 - CHEST PAIN, UNSPECIFIED Qualifiers: Chest pain type: unspecified Qualified Code(s): R07.9 - Chest pain, unspecified (4) Hyperthyroidism Code(s): E05.90 - THYROTOXICOSIS, UNSP WITHOUT THYROTOXIC CRISIS OR STORM Assessment/Plan IMP: Atypical chest pain Atrial fibrillation Hyperthyroidism Family history of CAD REC: 1. Continue Toprol 2. Continue Eliquis (was started by outpatient Land Leasing Examiner) 3. Treatment of hyperthyroidism as per Endo 4. For stress MPI today, further reccs pending results 5. Outpatient PFTS, sleep study and Pulmonary Consult for further evaluation and treatment of PHTN.
[2018-05-23] MEDS ORDERED: REGADENOSON 0.4 MG/5 ML PRE-FILLED SYRINGE IVPUSH ONE ×2 (09:46→10:30)
[2018-05-23] MEDS: metoPROLOL SUCCINATE 25 MG TAB.SR.24H (FP) PO SCH (11:56)
[2018-05-23] MEDS: APIXABAN 5 MG TABLET PO SCH ×2 (11:56→21:13)
[2018-05-23 15:27] VITALS: BMI 34.4
[2018-05-23] MEDS ORDERED: PT OWN MED DRAWER 7, Y5N ONE (21:09)
[2018-05-23] MEDS ORDERED: diphenhydrAMINE HCL 25 MG CAPSULE (FP) PO ONE (22:30)
--- NOTE | 2018-05-23 23:40 | PN ---
Progress Note, Physician - Current Medication List Current Medications: Active Medications Apixaban (Eliquis -) 5 mg PO BID [facility] Last Admin: 05/23/18 21:13 Dose: 5 mg Methimazole (Tapazole -) 10 mg PO TID [facility] Last Admin: 05/23/18 21:13 Dose: 10 mg Metoprolol Succinate (Toprol Xl -) 25 mg PO DAILY [facility] Last Admin: 05/23/18 11:56 Dose: 25 mg - Objective Vital Signs: Vital Signs Temperature 97.9 F 05/23/18 16:35 Pulse Rate 82 05/23/18 16:35 Respiratory Rate 18 05/23/18 16:35 Blood Pressure 144/69 05/23/18 16:35 O2 Sat by Pulse Oximetry (%) 99 05/23/18 08:28 Labs: CBC, BMP 05/22/18 06:10 05/22/18 06:10 INR, PTT INR 1.17 (0.83-1.09) H 05/21/18 12:50
--- NOTE | 2018-05-24 01:16 | PN ---
Progress Note, Physician Chief Complaint: NO COMPLAINT History of Present Illness: HYPERTHYROIDISM,AFIB,STARTED METHIMAZOLE AND BETA BLOCKERS FEELING BETTER ON AC - Current Medication List Current Medications: Active Medications Apixaban (Eliquis -) 5 mg PO BID [facility] Last Admin: 05/23/18 21:13 Dose: 5 mg Methimazole (Tapazole -) 10 mg PO TID [facility] Last Admin: 05/23/18 21:13 Dose: 10 mg Metoprolol Succinate (Toprol Xl -) 25 mg PO DAILY [facility] Last Admin: 05/23/18 11:56 Dose: 25 mg - Objective Vital Signs: Vital Signs Temperature 97.9 F 05/23/18 16:35 Pulse Rate 82 05/23/18 16:35 Respiratory Rate 18 05/23/18 16:35 Blood Pressure 144/69 05/23/18 16:35 O2 Sat by Pulse Oximetry (%) 98 05/23/18 21:00 Constitutional: Yes: Calm Eyes: Yes: EOM Intact HENT: Yes: Normocephalic Neck: Yes: Thyromegaly Cardiovascular: Yes: Tachycardia Respiratory: Yes: CTA Bilaterally Gastrointestinal: Yes: Normal Bowel Sounds ...Rectal Exam: Yes: Deferred Musculoskeletal: Yes: WNL Neurological: Yes: Alert, Oriented Labs: CBC, BMP 05/22/18 06:10 05/22/18 06:10 INR, PTT INR 1.17 (0.83-1.09) H 05/21/18 12:50 Problem List - Problems (1) Atrial fibrillation Code(s): I48.91 - UNSPECIFIED ATRIAL FIBRILLATION Qualifiers: Atrial fibrillation type: unspecified Qualified Code(s): I48.91 - Unspecified atrial fibrillation (2) Hyperthyroidism Code(s): E05.90 - THYROTOXICOSIS, UNSP WITHOUT THYROTOXIC CRISIS OR STORM (3) Goiter diffuse Code(s): E04.9 - NONTOXIC GOITER, UNSPECIFIED (4) Left anterior shoulder pain Code(s): M25.512 - PAIN IN LEFT SHOULDER (5) Nausea & vomiting Code(s): R11.2 - NAUSEA WITH VOMITING, UNSPECIFIED Assessment/Plan Current Active Problems Atrial fibrillation (Acute) Atrial fibrillation with rapid ventricular response (Acute) Chest pain (Acute) HTN (hypertension) (Acute) Hyperthyroidism (Acute) Hypomagnesemia (Acute) Noncompliance with medications (Acute) Obesity (Acute) Pulmonary hypertension (Acute) Sedentary lifestyle (Acute) Laboratory Tests 05/21/18 05/21/18 12:50 12:50 TSH 0.01 L Free T4 2.79 H Free T3 13.5 H PLAN: DC ON METHIMAZOLE 10MG TID METOPROLOL 25MG DAILY NEEDS I123 THYROID SCAN OUT PATIENT \GIVEN PAST NON COMPLIANCE WILL NEED CLOSE MONITORING BLOOD WORK OUT PATIENT AC ELIQUIS FOR AFIB
[2018-05-24] MEDS ORDERED: PT OWN MED DRAWER 7, Y5N ONE ×2 (05:29→12:30)
[2018-05-24] MEDS: METHIMAZOLE 10 MG TABLET (FP) PO SCH ×2 (05:38→12:33)
[2018-05-24 06:35] VITALS: TEMP 98.1
--- NOTE | 2018-05-24 08:48 | PN ---
Progress Note, Physician Chief Complaint: seen and examined No distress TELE: AF, overall controlled. At times mildly elevated. - Current Medication List Current Medications: Active Medications Apixaban (Eliquis -) 5 mg PO BID [facility] Last Admin: 05/23/18 21:13 Dose: 5 mg Methimazole (Tapazole -) 10 mg PO TID [facility] Last Admin: 05/24/18 05:38 Dose: 10 mg Metoprolol Succinate (Toprol Xl -) 25 mg PO DAILY [facility] Last Admin: 05/23/18 11:56 Dose: 25 mg - Objective Vital Signs: Vital Signs Temperature 98.1 F 05/24/18 06:00 Pulse Rate 86 05/24/18 06:00 Respiratory Rate 18 05/24/18 06:00 Blood Pressure 124/59 L 05/24/18 06:00 O2 Sat by Pulse Oximetry (%) 98 05/23/18 21:00 Constitutional: Yes: No Distress Cardiovascular: Yes: Pulse Irregular Respiratory: Yes: CTA Bilaterally Gastrointestinal: Yes: Soft Edema: No Neurological: Yes: Alert, Oriented Labs: CBC, BMP 05/22/18 06:10 05/22/18 06:10 INR, PTT INR 1.17 (0.83-1.09) H 05/21/18 12:50 - ....Imaging EKG: Image Reviewed Problem List - Problems (1) Pulmonary hypertension Code(s): I27.20 - PULMONARY HYPERTENSION, UNSPECIFIED (2) Atrial fibrillation Code(s): I48.91 - UNSPECIFIED ATRIAL FIBRILLATION Qualifiers: Atrial fibrillation type: unspecified Qualified Code(s): I48.91 - Unspecified atrial fibrillation (3) Chest pain Code(s): R07.9 - CHEST PAIN, UNSPECIFIED Qualifiers: Chest pain type: unspecified Qualified Code(s): R07.9 - Chest pain, unspecified (4) Hyperthyroidism Code(s): E05.90 - THYROTOXICOSIS, UNSP WITHOUT THYROTOXIC CRISIS OR STORM Assessment/Plan IMP: Atypical chest pain Atrial fibrillation Hyperthyroidism Family history of CAD REC: 1. Increase Toprol to 25mg BID 2. Continue Eliquis (was started by outpatient Passenger Service Representative) 3. Treatment of hyperthyroidism as per Endo 4. Stress MPI without ischemia. 5. Outpatient PFTS, sleep study and Pulmonary Consult for further evaluation and treatment of PHTN. 6. D/C Planning with outpt f/u Dr. Hough in 1 week
[2018-05-24] MEDS: APIXABAN 5 MG TABLET PO SCH (09:00)
[2018-05-24] MEDS: metoPROLOL SUCCINATE 25 MG TAB.SR.24H (FP) PO SCH (09:00)
[2018-05-24 09:03] VITALS: BP 125/80; PULSE 104
== END 2018-05-24 13:11 | disposition home or self-care (01) | DRG 424 ==
LOC: JER 11:04 → JERBED 14:13 → J4S 05-23 14:52
PROVIDERS: ADMIT Internal Medicine; ATTEND Internal Medicine
DX: E05.90 Thyrotoxicosis, unspecified without thyrotoxic crisis or storm (principal); I48.91 Unspecified atrial fibrillation; I27.20 Pulmonary hypertension, unspecified; R07.89 Other chest pain; E83.42 Hypomagnesemia; Z91.14 Patient's other noncompliance with medication regimen; E66.9 Obesity, unspecified; Z68.34 Body mass index [BMI] 34.0-34.9, adult; M25.512 Pain in left shoulder; I10 Essential (primary) hypertension; R00.0 Tachycardia, unspecified
CPT/HCPCS: 36415; 71045-TC-FY; 78452-TC; 80053; 82550; 83036; 83735; 84439; 84443; 84481; 84484; 84703; 85025; 85610; 85730; 93005; 93010; 93017; 93306-TC; 99285-25; A9502; J2785

== ENCOUNTER 2020-08-25 05:20 | Day surgery (SDC) | payer OTHER ==
[2020-08-22 08:35] VITALS: BMI 28.3
[2020-08-25 13:26] VITALS: BP 119/80; PULSE 102; TEMP 99.8
== END 2020-08-25 13:30 | disposition home or self-care (01) ==
LOC: JRADIR 05:20
PROVIDERS: ATTEND Surgery
PROC: BW4GZZZ Ultrasonography of Pelvic Region (ICD-10-PCS; principal; 2020-08-25)
DX: R59.0 Localized enlarged lymph nodes (principal); Z53.8 Procedure and treatment not carried out for other reasons
CPT/HCPCS: 38505; 76882-TC-RT-FY

== ENCOUNTER 2021-06-13 20:27 | Emergency (ER) | payer SELFPAY ==
[2021-06-13 20:48] VITALS: BP 131/77; PULSE 79; TEMP 98.2; BMI 32.5
[2021-06-13] MEDS ORDERED: ACETAMINOPHEN 500 MG TABLET (FP) PO ONE (22:16)
[2021-06-13] MEDS ORDERED: ACETAMINOPHEN 325 MG TABLET (FP) ONE (22:55)
[2021-06-14] MEDS ORDERED: CLINDAMYCIN HCL 150 MG CAPSULE (FP) PO ONE (00:08)
[2021-06-14] MEDS ORDERED: CLINDAMYCIN HCL 150 MG CAPSULE (FP) ONE (00:11)
== END 2021-06-14 00:18 | disposition home or self-care (01) ==
LOC: JER 20:27
DX: L03.115 Cellulitis of right lower limb (principal)
CPT/HCPCS: 93971-TC; 99284-25

== ENCOUNTER 2023-08-30 17:18 | Inpatient (IN) | payer OTHER ==
[2023-08-30 17:27] VITALS: BMI 40.4
[2023-08-30] MEDS: SODIUM CHLORIDE 0.9% 500 ML INFUS.BAG IV ONE (19:08)
[2023-08-30] MEDS ORDERED: ACETAMINOPHEN INJECTION 100 ML IVPB ONE (19:43)
[2023-08-30 19:44] LABS: BASO % 0.2 % (0-2.0); EOS % 0.1 % (0-4.5); HEMATOCRIT 38.6 % (32.4-45.2); HEMOGLOBIN 12.8 GM/dL (10.7-15.3); LYMPH % 12.1 % (8-40); MCH 26.6 pg (25.7-33.7); MCHC 33.2 g/dl (32.0-36.0); MEAN CELL VOLUME 80.1 fl (80-96); MEAN PLT VOLUME 8.3 fl (7.5-11.1); NEUT % 73.6 % (42.8-82.8); PLATELET COUNT 297 10^3/uL (134-434); RBC 4.82 M/mm3 (3.60-5.2); WHITE BLOOD COUNT 13.5 K/mm3 (4.0-10.0)
[2023-08-30 19:51] LABS: INR 1.41 (0.83-1.09); PROTHROMBIN TIME (PATIENT) 15.8 SEC (9.7-13.0)
[2023-08-30 19:54] LABS: ACTIVATED PTT 40.3 SECONDS (25.2-36.5)
[2023-08-30] MEDS: ACETAMINOPHEN 1000 MG/100 ML BAG IVPB ONE (19:54)
[2023-08-30 20:09] LABS: POTASSIUM 3.7 mmol/L (3.5-5.1)
[2023-08-30 20:12] LABS: ALBUMIN 3.1 g/dl (3.4-5.0); BLOOD UREA NITROGEN 9.2 mg/dL (7-18); CALCIUM 8.6 mg/dL (8.5-10.1)
[2023-08-30 20:15] LABS: CREATININE 0.9 mg/dL (0.55-1.3)
[2023-08-30 20:17] LABS: BILIRUBIN,TOTAL 2.2 mg/dL (0.2-1); TOT PROT 8.5 g/dl (6.4-8.2)
[2023-08-30] MEDS ORDERED: METOPROLOL TARTRATE 5 MG/5 ML VIAL ONE (23:48)
[2023-08-30] MEDS ORDERED: MAGNESIUM SULFATE IN WATER 2 GM/50 ML IVPB IVPB ONE (23:48)
[2023-08-30] MEDS: MAGNESIUM SULFATE IN WATER 2 GM/50 ML IVPB IVPB ONE (23:58)
[2023-08-31] MEDS: METHIMAZOLE 10 MG TABLET PO SCH (00:13)
[2023-08-31] MEDS: SODIUM CHLORIDE 0.9% 500 ML INFUS.BAG IV ONE (00:41)
[2023-08-31] MEDS: METOPROLOL TARTRATE 5 MG/5 ML VIAL IVPUSH ONE (00:53)
[2023-08-31] MEDS ORDERED: KETOROLAC TROMETHAMINE 15 MG/ML VIAL ONE (01:29)
[2023-08-31] MEDS: KETOROLAC TROMETHAMINE 15 MG/ML VIAL IVPUSH ONE (01:33)
[2023-08-31 02:29] LABS: N-TERMINAL BNP 119.5 pg/ml (5-125)
[2023-08-31 06:23] LABS: BASO % 0.2 % (0-2.0); EOS % 0.8 % (0-4.5); HEMATOCRIT 33.9 % (32.4-45.2); HEMOGLOBIN 11.3 GM/dL (10.7-15.3); LYMPH % 12.2 % (8-40); MCH 27.3 pg (25.7-33.7); MCHC 33.4 g/dl (32.0-36.0); MEAN CELL VOLUME 81.8 fl (80-96); MEAN PLT VOLUME 8.2 fl (7.5-11.1); MONO % 17.1 % (3.8-10.2); NEUT % 69.7 % (42.8-82.8); PLATELET COUNT 228 10^3/uL (134-434); RBC 4.15 M/mm3 (3.60-5.2); RDW 13.9 % (11.6-15.6); WHITE BLOOD COUNT 9.5 K/mm3 (4.0-10.0)
[2023-08-31] MEDS: ESMOLOL 2500 MG/250 ML 2,500,000 MCG/250 ML INFUS.BAG IVPB SCH (06:29)
[2023-08-31 06:46] LABS: POTASSIUM 3.9 mmol/L (3.5-5.1)
[2023-08-31 06:49] LABS: ALBUMIN 2.5 g/dl (3.4-5.0); BLOOD UREA NITROGEN 10.1 mg/dL (7-18); CALCIUM 7.8 mg/dL (8.5-10.1)
[2023-08-31 06:52] LABS: CREATININE 0.6 mg/dL (0.55-1.3)
[2023-08-31 06:54] LABS: BILIRUBIN,TOTAL 1.8 mg/dL (0.2-1); TOT PROT 7.3 g/dl (6.4-8.2)
[2023-08-31 06:57] LABS: N-TERMINAL BNP 77.4 pg/ml (5-125)
[2023-08-31] MEDS ORDERED: INSULIN (NOVOLOG MIX 70/30) 100 UNITS/ML MDV SQ ONE (06:58)
[2023-08-31] MEDS ORDERED: FUROSEMIDE 20 MG TABLET (FP) ONE (09:35)
[2023-08-31] MEDS ORDERED: METOPROLOL TARTRATE 25 MG TABLET (FP) ONE (09:35)
[2023-08-31] MEDS: METOPROLOL TARTRATE 25 MG TABLET (FP) PO SCH (09:40)
[2023-08-31] MEDS: FUROSEMIDE 20 MG TABLET (FP) PO SCH (09:40)
[2023-08-31] MEDS ORDERED: ACETAMINOPHEN INJECTION 100 ML IVPB ONE (10:56)
[2023-08-31] MEDS: ACETAMINOPHEN 1000 MG/100 ML BAG IVPB PRN (11:03)
[2023-08-31] MEDS: RIVAROXABAN 15 MG TABLET PO SCH (17:21)
[2023-09-01] MEDS: ACETAMINOPHEN 325 MG TABLET (FP) PO ONE ×2 (04:01→18:02)
[2023-09-01 07:06] LABS: BASO % 0.2 % (0-2.0); EOS % 0.9 % (0-4.5); HEMATOCRIT 32.2 % (32.4-45.2); HEMOGLOBIN 10.7 GM/dL (10.7-15.3); LYMPH % 11.6 % (8-40); MCH 26.8 pg (25.7-33.7); MCHC 33.1 g/dl (32.0-36.0); MEAN CELL VOLUME 80.9 fl (80-96); MEAN PLT VOLUME 8.2 fl (7.5-11.1); MONO % 17.8 % (3.8-10.2); NEUT % 69.5 % (42.8-82.8); PLATELET COUNT 260 10^3/uL (134-434); RBC 3.98 M/mm3 (3.60-5.2); RDW 13.6 % (11.6-15.6); WHITE BLOOD COUNT 7.9 K/mm3 (4.0-10.0)
[2023-09-01 07:21] LABS: POTASSIUM 3.7 mmol/L (3.5-5.1)
[2023-09-01 07:27] LABS: BLOOD UREA NITROGEN 8.7 mg/dL (7-18); CALCIUM 7.8 mg/dL (8.5-10.1)
[2023-09-01 07:28] LABS: ALBUMIN 2.3 g/dl (3.4-5.0)
[2023-09-01 07:30] LABS: CREATININE 0.6 mg/dL (0.55-1.3)
[2023-09-01 07:32] LABS: TOT PROT 7.1 g/dl (6.4-8.2)
[2023-09-01] MEDS: METOPROLOL TARTRATE 25 MG TABLET (FP) PO SCH (09:28)
[2023-09-02] MEDS: ACETAMINOPHEN 325 MG TABLET (FP) PO PRN (05:36)
[2023-09-02 08:34] LABS: BASO % 0.2 % (0-2.0); EOS % 2.3 % (0-4.5); HEMATOCRIT 33.1 % (32.4-45.2); LYMPH % 13.5 % (8-40); MCH 26.7 pg (25.7-33.7); MCHC 33.4 g/dl (32.0-36.0); MONO % 16.8 % (3.8-10.2); NEUT % 67.2 % (42.8-82.8); PLATELET COUNT 320 10^3/uL (134-434); RBC 4.13 M/mm3 (3.60-5.2); WHITE BLOOD COUNT 6.5 K/mm3 (4.0-10.0)
[2023-09-02 08:51] LABS: POTASSIUM 3.6 mmol/L (3.5-5.1)
[2023-09-02 08:55] LABS: ALBUMIN 2.4 g/dl (3.4-5.0); BLOOD UREA NITROGEN 10.4 mg/dL (7-18); CALCIUM 8.1 mg/dL (8.5-10.1)
[2023-09-02 08:58] LABS: CREATININE 0.6 mg/dL (0.55-1.3); TOT PROT 7.5 g/dl (6.4-8.2)
[2023-09-02 09:00] LABS: BILIRUBIN,TOTAL 0.7 mg/dL (0.2-1)
[2023-09-03 06:44] VITALS: RESP 17
[2023-09-03 08:24] LABS: BASO % 0.4 % (0-2.0); EOS % 2.5 % (0-4.5); HEMATOCRIT 32.3 % (32.4-45.2); HEMOGLOBIN 10.9 GM/dL (10.7-15.3); LYMPH % 19.2 % (8-40); MCH 26.9 pg (25.7-33.7); MCHC 33.6 g/dl (32.0-36.0); MEAN CELL VOLUME 80.1 fl (80-96); MEAN PLT VOLUME 8.1 fl (7.5-11.1); MONO % 15.9 % (3.8-10.2); PLATELET COUNT 346 10^3/uL (134-434); RBC 4.04 M/mm3 (3.60-5.2); RDW 13.5 % (11.6-15.6); WHITE BLOOD COUNT 6.3 K/mm3 (4.0-10.0)
[2023-09-03 08:43] LABS: POTASSIUM 3.8 mmol/L (3.5-5.1)
[2023-09-03 08:50] LABS: ALBUMIN 2.3 g/dl (3.4-5.0); BLOOD UREA NITROGEN 10.5 mg/dL (7-18)
[2023-09-03 08:51] LABS: CREATININE 0.5 mg/dL (0.55-1.3)
[2023-09-03 08:52] LABS: BILIRUBIN,TOTAL 0.4 mg/dL (0.2-1); TOT PROT 7.7 g/dl (6.4-8.2)
[2023-09-03 12:15] VITALS: BP 117/72; PULSE 88; TEMP 98.4
== END 2023-09-03 15:00 | disposition home or self-care (01) | DRG 645 ==
LOC: JER 17:18 → JERBED 22:09 → J4W 08-31 13:19
PROVIDERS: ADMIT Internal Medicine; ATTEND Internal Medicine
DX: E05.91 Thyrotoxicosis, unspecified with thyrotoxic crisis or storm (principal); I48.91 Unspecified atrial fibrillation; R07.89 Other chest pain; Z86.718 Personal history of other venous thrombosis and embolism; I10 Essential (primary) hypertension; R50.9 Fever, unspecified
CPT/HCPCS: 0241U-QW; 36415; 71045-TC-FY; 71275-TC; 76536-TC; 80053; 83880; 84439; 84443; 84484; 85025; 85610; 85730; 87040; 87086; 87635; 93005; 93010; 93306-TC; 99285-25; J0131; Q9967

== ENCOUNTER 2023-09-13 10:47 | Inpatient (IN) | payer OTHER ==
[2023-09-13 10:53] VITALS: BMI 38.9
[2023-09-13] MEDS ORDERED: ACETAMINOPHEN INJECTION 100 ML IVPB ONE ×2 (12:04→20:29)
[2023-09-13 12:09] LABS: VENOUS BASE EXCESS 1.6 mmol/L (-2-2); VENOUS O2 SATURATION 56.2 % (70-80); VENOUS PCO2 38.2 mmHg (38-52); VENOUS PH 7.444 (7.310-7.410)
[2023-09-13] MEDS: SODIUM CHLORIDE 0.9% 1000 ML INFUS.BAG IV STA (12:10)
[2023-09-13 12:11] LABS: INR 3.48 (0.83-1.09); PROTHROMBIN TIME (PATIENT) 38.6 SEC (9.7-13.0)
[2023-09-13 12:14] LABS: ACTIVATED PTT 49.3 SECONDS (25.2-36.5)
[2023-09-13] MEDS: ACETAMINOPHEN 1000 MG/100 ML BAG IVPB ONE ×2 (12:15→20:35)
[2023-09-13 12:17] LABS: BASO % 0.1 % (0-2.0); EOS % 0.5 % (0-4.5); LYMPH % 10.3 % (8-40); MCH 25.9 pg (25.7-33.7); MCHC 32.4 g/dl (32.0-36.0); MEAN PLT VOLUME 7.7 fl (7.5-11.1); MONO % 11.1 % (3.8-10.2); PLATELET COUNT 503 10^3/uL (134-434); RBC 3.87 M/mm3 (3.60-5.2); RDW 13.3 % (11.6-15.6); WHITE BLOOD COUNT 9.7 K/mm3 (4.0-10.0)
[2023-09-13 12:26] LABS: POTASSIUM 3.6 mmol/L (3.5-5.1)
[2023-09-13 12:29] LABS: ALBUMIN 2.6 g/dl (3.4-5.0); CALCIUM 8.2 mg/dL (8.5-10.1)
[2023-09-13 12:30] LABS: BLOOD UREA NITROGEN 7.4 mg/dL (7-18)
[2023-09-13 12:33] LABS: CREATININE 0.6 mg/dL (0.55-1.3)
[2023-09-13 12:34] LABS: BILIRUBIN,TOTAL 0.7 mg/dL (0.2-1); TOT PROT 8.2 g/dl (6.4-8.2)
[2023-09-13] MEDS: SODIUM CHLORIDE 0.9% 1000 ML INFUS.BAG IV ONE (17:38)
[2023-09-14 00:17] VITALS: BP 128/85; PULSE 106; RESP 18; TEMP 97.8
[2023-09-14] MEDS ORDERED: METHIMAZOLE 10 MG TABLET PO ONE (00:20)
== END 2023-09-14 01:49 | disposition short-term general hospital (02) | DRG 204 ==
LOC: JER 10:47 → JERBED 14:07
PROVIDERS: ADMIT Internal Medicine; ATTEND Internal Medicine
DX: R06.02 Shortness of breath (principal); I31.4 Cardiac tamponade; E66.9 Obesity, unspecified; Z68.39 Body mass index [BMI] 39.0-39.9, adult
CPT/HCPCS: 0241U-QW; 36415; 71045-TC-FY; 71046-TC-FY; 80053; 80061; 82803; 83036; 83605; 84436; 84439; 84443; 84479; 84484; 85025; 85610; 85730; 86850; 86900; 86901; 87040; 93005; 93010; 93306-TC; 99285-25; J0131